=== PATIENT | male | born 1980 | race Caucasian/White ===

== ENCOUNTER 2016-06-10 10:39 | Inpatient (IN) | payer OTHER ==
[2016-06-10 11:40] VITALS: BMI 21.7
--- NOTE | 2016-06-10 14:05 | HP ---
CIWA Score - CIWA Score Nausea/Vomitin-No Nausea/No Vomiting Muscle Tremors: 4-Moderate,w/Arms Extend Anxiety: 4-Mod. Anxious/Guarded Agitation: 4-Moderately Restless Paroxysmal Sweats: 3 Orientation: 0-Oriented Tacttile Disturbances: 0-None Auditory Disturbances: 0-None Visual Disturbances: 0-None Headache: 1-Very Mild CIWA-Ar Total Score: 16 Admission ROS BHS - HPI Chief Complaint: I need to stop drinking. Allergies/Adverse Reactions: Allergies Allergy/AdvReac Type Severity Reaction Status Date / Time No Known Allergies Allergy Verified 06/10/16 13:56 History of Present Illness: Pt is a 36yr old male with a history of alcohol dependence seeking detox for treatment. pt is also HIV since 2016 on tivicay and truvada; pt brought his own medication Exam Limitations: Other (aaox3 irritable but cooperative) - Ebola screening Have you traveled outside of the country in the last 21 days: No Have you had contact with anyone from an Ebola affected area: No Have you been sick,other than usual withdrawal symptoms: No Do you have a fever: No - Review of Systems Constitutional: Diaphoresis, Loss of Appetite, Night Sweats, Changes in sleep, Unintentional Wgt. Loss EENT: reports: Blurred Vision (right eye semi-zuleyka), Tearing, Nose Congestion, Other (5 cerebral anurysum cause right eye blurred vision.) Respiratory: reports: No Symptoms reported Cardiac: reports: Syncope GI: reports: Nausea, Poor Appetite, Poor Fluid Intake : reports: No Symptoms Reported Musculoskeletal: reports: Back Pain Integumentary: reports: Flushing, Sweating Neuro: reports: Headache, Tingling, Tremors Endocrine: reports: Excessive Sweating, Flushing, Intolerance to Cold, Intolerance to Heat Hematology: reports: No Symptoms Reported Psychiatric: reports: Judgement Intact, Mood/Affect Appropiate, Orientated x3, Agitated, Anxious Other Systems: Reviewed and Negative Patient History - Patient Medical History Hx Anemia: No Hx Asthma: No Hx Chronic Obstructive Pulmonary Disease (COPD): No Hx Cancer: No Hx Cardiac Disorders: No Hx Congestive Heart Failure: No Hx Hypertension: No Hx Hypercholesterolemia: Yes Hx Pacemaker: No HX Cerebrovascular Accident: No Hx Seizures: No Hx Dementia: No Hx Diabetes: No Hx Gastrointestinal Disorders: No Hx Liver Disease: No Hx Genitourinary Disorders: No Hx Sexually Transmitted Disorders: No Hx Renal Disease (ESRD): No Hx Thyroid Disease: No Hx Human Immunodeficiency Virus (HIV): Yes (since 2015) Hx Hepatitis C: No Hx Depression: Yes Hx Suicide Attempt: No (denies) Hx Bipolar Disorder: No Hx Schizophrenia: No - Patient Surgical History Past Surgical History: Yes Other Surgical History: V/P shunt 09/2013 d/t brain anurysm - PPD History Previous Implant?: Yes Documented Results: Negative w/o proof PPD to be Administered?: Yes - Reproductive History Patient is a Female of Child Bearing Age (11 -55 yrs old): No - Smoking Cessation Smoking history: Current every day smoker Have you smoked in the past 12 months: Yes Aproximately how many cigarettes per day: 10 Hx Chewing Tobacco Use: No Initiated information on smoking cessation: Yes 'Breaking Loose' booklet given: 06/10/16 - Substance & Tx. History Hx Alcohol Use: Yes Hx Substance Use: Yes Substance Use Type: Alcohol, Cocaine Hx Substance Use Treatment: Yes - Substances Abused Alcohol Route: Oral Frequency: Daily Amount used: 3 6PK BEER Age of first use: 18 Date of Last Use: 06/09/16 Cocaine Route: Smoking Frequency: Daily Amount used: $200 Age of first use: 25 Date of Last Use: 06/09/16 Family Disease History - Family Disease History Family Disease History: Heart Disease: Grandparent, [place]: Grandparent Admission Physical Exam BHS - Vital Signs Vital Signs: Vital Signs - 24 hr 06/10/16 11:33 Temperature 96.7 F L Pulse Rate 90 Respiratory 20 Rate Blood Pressure 138/90 - Physical General Appearance: Yes: Appropriately Dressed, Moderate Distress, Tremorous, Irritable, Sweating, Anxious HEENTM: Yes: Normal Voice, Nasal Congestion, Rhinorrhea, Other (internal shunt to right side of head) Respiratory: Yes: Lungs Clear, Normal Breath Sounds, No Respiratory Distress Neck: Yes: No masses,lesions,Nodules Breast: Yes: Within Normal Limits, No masses Cardiology: Yes: Regular Rhythm, Regular Rate, S1, S2 Abdominal: Yes: Normal Bowel Sounds, Non Tender, Soft Genitourinary: Yes: Within Normal Limits Back: Yes: Normal Inspection Musculoskeletal: Yes: full range of Motion, Other (discomfort to right scapula area) Extremities: Yes: Normal Capillary Refill, Normal Inspection, Non-Tender, Tremors Neurological: Yes: Fully Oriented, Alert, Normal Response Integumentary: Yes: Normal Color, Diaphoresis Lymphatic: Yes: Within Normal Limits - Diagnostic (1) Alcohol dependence with uncomplicated withdrawal Current Visit: Yes Status: Chronic (2) Cocaine dependence Current Visit: Yes Status: Chronic Qualifiers: Substance use status: uncomplicated Qualified Code(s): F14.20 - Cocaine dependence, uncomplicated (3) HIV disease Current Visit: Yes Status: Chronic (4) Hyperlipidemia Current Visit: Yes Status: Chronic Qualifiers: Hyperlipidemia type: unspecified Qualified Code(s): E78.5 - Hyperlipidemia, unspecified Cleared for Admission [facility] - Detox or Rehab [facility] Level of Care: Medically Managed Detox Regimen/Protocol: Librium [facility] Breath Alcohol Content Breath Alcohol Content: 0 Urine Drug Screen - Results Drug Screen Negative: No Urine Drug Screen Results: DOUG-Cocaine
[2016-06-10] MEDS ORDERED: P-EPHED 60MG/TRIPROLIDI 2.5MG TABLET PO PRN (14:15)
[2016-06-10] MEDS ORDERED: IBUPROFEN 400 MG TABLET (FP) PO PRN (14:15)
[2016-06-10] MEDS ORDERED: MAGNESIUM CITRATE 300 ML BOTTLE PO PRN (14:15)
[2016-06-10] MEDS ORDERED: chlordiazePOXIDE HCL 25 MG CAPSULE PO PRN (14:15)
[2016-06-10] MEDS ORDERED: guaiFENesin/D-METHORPHAN HB 10 ML UNIT-DOSE CUPS PO PRN (14:15)
[2016-06-10] MEDS ORDERED: hydrOXYzine PAMOATE 50 MG CAPSULE (FP) PO PRN (14:15)
[2016-06-10] MEDS ORDERED: LOPERAMIDE HCL 2 MG CAPSULE PO PRN (14:15)
[2016-06-10] MEDS ORDERED: diphenhydrAMINE HCL 50 MG CAPSULE PO PRN (14:15)
[2016-06-10] MEDS ORDERED: MENTHOL/PHENOL 1 EACH UD MM PRN (14:15)
[2016-06-10] MEDS ORDERED: MAGNESIUM HYDROX 2400MG/30ML ORAL SUSPENSION 30 ML CUP PO PRN (14:15)
[2016-06-10] MEDS ORDERED: NICOTINE POLACRILEX 4 MG GUM BUC PRN (14:15)
[2016-06-10] MEDS ORDERED: MAG HYDROX/AL HYDROX/SIMETH 30 ML UNIT-DOSE CUP PO PRN (14:15)
[2016-06-10] MEDS ORDERED: ACETAMINOPHEN 325 MG TABLET (FP) PO PRN (14:15)
[2016-06-10] MEDS ORDERED: LIDOCAINE 5% TOPICAL PATCH TP ONE (14:18)
[2016-06-10] MEDS ORDERED: chlordiazePOXIDE HCL 25 MG CAPSULE PO ONE (14:22)
[2016-06-10 16:29] LABS: URINE APPEARANCE CLEAR; URINE BILIRUBIN NEGATIVE (NEGATIVE); URINE COLOR YELLOW; URINE GLUCOSE (UA) NEGATIVE (NEGATIVE); URINE KETONE NEGATIVE (NEGATIVE); URINE LEUK ESTERASE NEGATIVE (NEGATIVE); URINE NITRITE NEGATIVE (NEGATIVE); URINE PROTEIN NEGATIVE (NEGATIVE); URINE UROBILINOGEN NEGATIVE E.U./dl (0.2-1.0)
[2016-06-10 16:38] LABS: URINE BLOOD 1+ (NEGATIVE)
[2016-06-10 16:40] LABS: URINE MUCUS FEW; URINE RBC 1 /hpf (0-3); URINE WBC 1 /hpf (3-5)
[2016-06-10] MEDS: chlordiazePOXIDE HCL 25 MG CAPSULE PO SCH ×2 (17:22→22:35)
--- NOTE | 2016-06-10 19:16 | CONSULT ---
[facility] Psychiatric Consult - Data Date of interview: 06/10/16 Admission source: [facility] Identifying data: First admission to [facility] for this 36 y/o male seeking detox treatment on for alcohol,cocaine and marijuana dependence.Patient is ,a father of one,homeless,unemployed and supported on Public Assistance. Substance Abuse History: - Smoking Cessation. Smoking history: Current every day smoker. Have you smoked in the past 12 months: Yes. Aproximately how many cigarettes per day: 10. Hx Chewing Tobacco Use: No. Initiated information on smoking cessation: Yes. 'Breaking Loose' booklet given: 06/10/16. - Substance & Tx. History. Hx Alcohol Use: Yes. Hx Substance Use: Yes. Substance Use Type : Alcohol, Cocaine. Hx Substance Use Treatment: Yes. - Substances Abused. Alcohol. Route: Oral. Frequency: Daily. Amount used: 3 6PK BEER. Age of first use: 18. Date of Last Use: 06/09/16. Cocaine. Route: Smoking. Frequency: Daily. Amount used: $200. Age of first use: 25. Date of Last Use: 06/09/16. Discussed with the patient.Confirmed this pattern of substance abuse Medical History: Significant for HIV infection [facility] 2016 (on ART drugs), hypercholesterolemia and a history of TOBACCO WEIGHER shunt due to brain aneurysm (2014). Psychiatric History: Patient denies. Physical/Sexual Abuse/Trauma History: Patient denies. Additional Comment: Urine Drug Screen Results: DOUG-Cocaine.Noted. Mental Status Exam - Mental Status Exam Alert and Oriented to: Time, Place, Person Cognitive Function: Good Patient Appearance: Well Groomed Mood: Nervous, Anxious Affect: Mood Congruent Patient Behavior: Fatigued, Appropriate, Cooperative Speech Pattern: Clear Voice Loudness: Normal Thought Process: Goal Oriented Thought Disorder: Not Present Hallucinations: Denies Suicidal Ideation: Denies Homicidal Ideation: Denies Insight/Judgement: Poor Sleep: Poorly, Difficulty falling asleep Appetite: Good Muscle strength/Tone: Normal Gait/Station: Normal Psychiatric Findings - Problem List ([place] 1, 2,3) (1) Alcohol dependence with uncomplicated withdrawal Current Visit: Yes Status: Acute (2) Cocaine dependence Current Visit: Yes Status: Acute Qualifiers: Substance use status: uncomplicated Qualified Code(s): F14.20 - Cocaine dependence, uncomplicated (3) Nicotine dependence Current Visit: Yes Status: Acute (4) HIV disease Current Visit: Yes Status: Chronic (5) Hyperlipidemia Current Visit: Yes Status: Chronic Qualifiers: Hyperlipidemia type: unspecified Qualified Code(s): E78.5 - Hyperlipidemia, unspecified (6) Insomnia Current Visit: Yes Status: Acute - Initial Treatment Plan Initial Treatment Plan: Psychoeducation.Detoxification.Zolpidem 5 mg po hs prn.Patient made aware of the risk for parasomnias.He agrees to take ambien despite risk of parasomnias.Observation.
[2016-06-10] MEDS: THIAMINE HCL 100 MG TABLET (FP) PO SCH (22:35)
[2016-06-10] MEDS: ZOLPIDEM TARTRATE 5 MG TABLET PO PRN (22:35)
[2016-06-11] MEDS: chlordiazePOXIDE HCL 25 MG CAPSULE PO SCH ×4 (05:48→22:16)
[2016-06-11 09:57] LABS: MCH 31.1 pg (25.7-33.7); MCHC 33.7 g/dl (32.0-35.9); MEAN CELL VOLUME 92.5 fl (80-96); MEAN PLT VOLUME 10.3 fl (7.5-11.1); PLATELET COUNT 197 K/MM3 (134-434); RDW 13.3 % (11.9-15.9); WHITE BLOOD COUNT 5.6 K/mm3 (4.0-10.0)
[2016-06-11 10:15] LABS: ALBUMIN 3.4 g/dl (3.4-5.0); ALK PHOS 73 U/L (45-117); ANION GAP 10 (8-16); BILIRUBIN,TOTAL 0.3 mg/dL (0.2-1.0); CALCIUM 8.8 mg/dL (8.5-10.1); CO2 26 mmol/L (21-32); CREATININE 0.9 mg/dL (0.7-1.3); GLUCOSE,RANDOM 126 mg/dL (74-106); SGOT/AST 18 U/L (15-37); SGPT/ALT 21 U/L (12-78); TOT PROT 6.3 g/dl (6.4-8.2)
[2016-06-11] MEDS: PATIENT'S OWN MEDICATION (NON-FORMULARY) (Dolutegravir Sodium 0 MG) PO SCH (10:36)
[2016-06-11] MEDS: PRENATAL VITAMINS W/ FOLIC ACID TABLET (FP) PO SCH (10:38)
[2016-06-11] MEDS: EMTRICITABINE 200MG/TENOFOVIR 300MG PO SCH (10:38)
[2016-06-11] MEDS: LIDOCAINE 5% TOPICAL PATCH TP SCH (10:39)
[2016-06-11] MEDS: NICOTINE 21 MG/24 HOURS TOPICAL PATCH TD SCH (10:39)
--- NOTE | 2016-06-11 12:16 | PN ---
S CIWA - CIWA Score Nausea/Vomitin-No Nausea/No Vomiting Muscle Tremors: 4-Moderate,w/Arms Extend Anxiety: 4-Mod. Anxious/Guarded Agitation: 4-Moderately Restless Paroxysmal Sweats: 1-Minimal Palms Moist Orientation: 0-Oriented Tacttile Disturbances: 3-Moderate Itch/Numb/Burn Auditory Disturbances: 0-None Visual Disturbances: 0-None Headache: 0-None Present CIWA-Ar Total Score: 16 BHS Progress Note (SOAP) Subjective: ANXIETY,SWEATS/CHILLS,FATIGUE. Objective: 06/11/16 12:15 Vital Signs Temperature 96 F L 06/11/16 11:48 Pulse Rate 122 H 06/11/16 11:48 Respiratory Rate 18 06/11/16 11:48 Blood Pressure 154/89 06/11/16 11:48 O2 Sat by Pulse Oximetry (%) Laboratory Tests 06/10/16 06/11/16 06/11/16 15:00 06:00 06:00 WBC 5.6 RBC 4.66 Hgb 14.5 Hct 43.1 MCV 92.5 MCHC 33.7 RDW 13.3 Plt Count 197 MPV 10.3 Sodium 142 Potassium 4.3 Chloride 106 Carbon Dioxide 26 Anion Gap 10 BUN 13 Creatinine 0.9 Creat Clearance w eGFR > 60 Random Glucose 126 H Calcium 8.8 Total Bilirubin 0.3 AST 18 ALT 21 Alkaline Phosphatase 73 Total Protein 6.3 L Albumin 3.4 Urine Color Yellow Urine Appearance Clear Urine pH 5.0 Ur Specific [place] 1.028 Urine Protein Negative Urine Glucose (UA) Negative Urine Ketones Negative Urine Blood 1+ H Urine Nitrite Negative Urine Bilirubin Negative Urine Urobilinogen Negative Ur Leukocyte Esterase Negative Urine RBC 1 Urine WBC 1 Urine Mucus Few Assessment: 06/11/16 12:15 WITHDRAWAL SX Plan: CONTINUE DETOX
[2016-06-11] MEDS: THIAMINE HCL 100 MG TABLET (FP) PO SCH (22:16)
--- NOTE | 2016-06-11 23:36 | EKG ---
Test Reason : Blood Pressure : / mmHG Vent. Rate : 078 BPM Atrial Rate : 078 BPM P-R Int : 110 ms QRS Dur : 106 ms QT Int : 374 ms P-R-T Axes : -19 079 067 degrees QTc Int : 426 ms SINUS RHYTHM WITH SHORT MA OTHERWISE NORMAL ECG NO PREVIOUS ECGS AVAILABLE Confirmed by ALEXEY MAGALLANES, EDGAR ([id number]) on 06/11/2016 11:35:57 PM Referred By: Mohinder Brown Confirmed By:EDGAR BLACKBURN MD
[2016-06-12] MEDS: chlordiazePOXIDE HCL 25 MG CAPSULE PO SCH ×2 (06:09→10:24)
[2016-06-12] MEDS: PATIENT'S OWN MEDICATION (NON-FORMULARY) (Dolutegravir Sodium 0 MG) PO SCH (10:23)
[2016-06-12] MEDS: PRENATAL VITAMINS W/ FOLIC ACID TABLET (FP) PO SCH (10:23)
[2016-06-12] MEDS: EMTRICITABINE 200MG/TENOFOVIR 300MG PO SCH (10:24)
--- NOTE | 2016-06-12 10:24 | PN ---
[facility] CIWA - CIWA Score Nausea/Vomitin-No Nausea/No Vomiting Muscle Tremors: 4-Moderate,w/Arms Extend Anxiety: 4-Mod. Anxious/Guarded Agitation: 4-Moderately Restless Paroxysmal Sweats: 1-Minimal Palms Moist Orientation: 0-Oriented Tacttile Disturbances: 3-Moderate Itch/Numb/Burn Auditory Disturbances: 0-None Visual Disturbances: 0-None Headache: 0-None Present CIWA-Ar Total Score: 16 S Progress Note (SOAP) Subjective: ANXIETY,BACKACHE,FATIGUE,SWEATS/CHILLS. Objective: 06/12/16 10:24 Vital Signs Temperature 96 F L 06/12/16 09:30 Pulse Rate 122 H 06/12/16 09:30 Respiratory Rate 20 06/12/16 09:30 Blood Pressure 137/89 06/12/16 09:30 O2 Sat by Pulse Oximetry (%) Laboratory Last Values WBC 5.6 K/mm3 (4.0-10.0) 06/11/16 06:00 RBC 4.66 M/mm3 (4.00-5.60) 06/11/16 06:00 Hgb 14.5 GM/dL (11.7-16.9) 06/11/16 06:00 Hct 43.1 % (35.4-49) 06/11/16 06:00 MCV 92.5 fl (80-96) 06/11/16 06:00 MCHC 33.7 g/dl (32.0-35.9) 06/11/16 06:00 RDW 13.3 % (11.9-15.9) 06/11/16 06:00 Plt Count 197 K/MM3 (134-434) 06/11/16 06:00 MPV 10.3 fl (7.5-11.1) 06/11/16 06:00 Sodium 142 mmol/L (136-145) 06/11/16 06:00 Potassium 4.3 mmol/L (3.5-5.1) 06/11/16 06:00 Chloride 106 mmol/L (98-107) 06/11/16 06:00 Carbon Dioxide 26 mmol/L (21-32) 06/11/16 06:00 Anion Gap 10 (8-16) 06/11/16 06:00 BUN 13 mg/dL (7-18) 06/11/16 06:00 Creatinine 0.9 mg/dL (0.7-1.3) 06/11/16 06:00 Creat Clearance w eGFR > 60 (>60) 06/11/16 06:00 Random Glucose 126 mg/dL (74-106) H 06/11/16 06:00 Calcium 8.8 mg/dL (8.5-10.1) 06/11/16 06:00 Total Bilirubin 0.3 mg/dL (0.2-1.0) 06/11/16 06:00 AST 18 U/L (15-37) 06/11/16 06:00 ALT 21 U/L (12-78) 06/11/16 06:00 Alkaline Phosphatase 73 U/L (45-117) 06/11/16 06:00 Total Protein 6.3 g/dl (6.4-8.2) L 06/11/16 06:00 Albumin 3.4 g/dl (3.4-5.0) 06/11/16 06:00 Urine Color Yellow 06/10/16 15:00 Urine Appearance Clear 06/10/16 15:00 Urine pH 5.0 (5.0-8.0) 06/10/16 15:00 Ur Specific [place] 1.028 (1.001-1.035) 06/10/16 15:00 Urine Protein Negative (NEGATIVE) 06/10/16 15:00 Urine Glucose (UA) Negative (NEGATIVE) 06/10/16 15:00 Urine Ketones Negative (NEGATIVE) 06/10/16 15:00 Urine Blood 1+ (NEGATIVE) H 06/10/16 15:00 Urine Nitrite Negative (NEGATIVE) 06/10/16 15:00 Urine Bilirubin Negative (NEGATIVE) 06/10/16 15:00 Urine Urobilinogen Negative E.U./dl (0.2-1.0) 06/10/16 15:00 Ur Leukocyte Esterase Negative (NEGATIVE) 06/10/16 15:00 Urine RBC 1 /hpf (0-3) 06/10/16 15:00 Urine WBC 1 /hpf (3-5) 06/10/16 15:00 Urine Mucus Few 06/10/16 15:00 RPR Titer Nonreactive (NONREACTIVE) 06/11/16 06:00 Assessment: 02/01/17 10:24 WITHDRAWAL SX Plan: CONTINUE DETOX
[2016-06-12] MEDS: NICOTINE 21 MG/24 HOURS TOPICAL PATCH TD SCH (10:25)
[2016-06-12] MEDS: LIDOCAINE 5% TOPICAL PATCH TP SCH (10:25)
[2016-06-12] MEDS: chlordiazePOXIDE 5 MG CAPSULE PO SCH ×2 (17:21→22:09)
[2016-06-12] MEDS: THIAMINE HCL 100 MG TABLET (FP) PO SCH (22:09)
[2016-06-13] MEDS: chlordiazePOXIDE 5 MG CAPSULE PO SCH ×2 (06:02→10:15)
[2016-06-13] MEDS: PRENATAL VITAMINS W/ FOLIC ACID TABLET (FP) PO SCH (10:15)
[2016-06-13] MEDS: PATIENT'S OWN MEDICATION (NON-FORMULARY) (Dolutegravir Sodium 0 MG) PO SCH (10:15)
[2016-06-13] MEDS: EMTRICITABINE 200MG/TENOFOVIR 300MG PO SCH (10:15)
--- NOTE | 2016-06-13 10:16 | PN ---
BHS Progress Note (SOAP) Subjective: DECREASED ANXIETY, SWEATS,TREMORS. Objective: 06/13/16 10:16 Vital Signs Temperature 96.2 F L 06/13/16 09:25 Pulse Rate 117 H 06/13/16 09:25 Respiratory Rate 20 06/13/16 09:25 Blood Pressure 126/84 06/13/16 09:25 O2 Sat by Pulse Oximetry (%) Assessment: 06/13/16 10:16 WITHDRAWAL SX Plan: CONTINUE DETOX
[2016-06-13] MEDS: LIDOCAINE 5% TOPICAL PATCH TP SCH (10:17)
[2016-06-13] MEDS: NICOTINE 21 MG/24 HOURS TOPICAL PATCH TD SCH (10:17)
[2016-06-13] MEDS: chlordiazePOXIDE HCL 10 MG CAPSULE PO SCH ×2 (18:00→22:37)
[2016-06-13] MEDS: ZOLPIDEM TARTRATE 5 MG TABLET PO PRN (22:36)
[2016-06-13] MEDS: THIAMINE HCL 100 MG TABLET (FP) PO SCH (22:36)
[2016-06-14] MEDS: chlordiazePOXIDE HCL 10 MG CAPSULE PO SCH (05:35)
[2016-06-14 06:24] VITALS: BP 127/84; PULSE 101; TEMP 97
--- NOTE | 2016-06-14 08:36 | PN ---
BHS Progress Note (SOAP) Subjective: no complaints Objective: 06/14/16 08:35 Laboratory Tests 06/10/16 06/11/16 06/11/16 15:00 06:00 06:00 WBC 5.6 RBC 4.66 Hgb 14.5 Hct 43.1 MCV 92.5 MCHC 33.7 RDW 13.3 Plt Count 197 MPV 10.3 Sodium 142 Potassium 4.3 Chloride 106 Carbon Dioxide 26 Anion Gap 10 BUN 13 Creatinine 0.9 Creat Clearance w eGFR > 60 Random Glucose 126 H Calcium 8.8 Total Bilirubin 0.3 AST 18 ALT 21 Alkaline Phosphatase 73 Total Protein 6.3 L Albumin 3.4 Urine Color Yellow Urine Appearance Clear Urine pH 5.0 Ur Specific [place] 1.028 Urine Protein Negative Urine Glucose (UA) Negative Urine Ketones Negative Urine Blood 1+ H Urine Nitrite Negative Urine Bilirubin Negative Urine Urobilinogen Negative Ur Leukocyte Esterase Negative Urine RBC 1 Urine WBC 1 Urine Mucus Few RPR Titer 06/11/16 06:00 WBC RBC Hgb Hct MCV MCHC RDW Plt Count MPV Sodium Potassium Chloride Carbon Dioxide Anion Gap BUN Creatinine Creat Clearance w eGFR Random Glucose Calcium Total Bilirubin AST ALT Alkaline Phosphatase Total Protein Albumin Urine Color Urine Appearance Urine pH Ur Specific [place] Urine Protein Urine Glucose (UA) Urine Ketones Urine Blood Urine Nitrite Urine Bilirubin Urine Urobilinogen Ur Leukocyte Esterase Urine RBC Urine WBC Urine Mucus RPR Titer Nonreactive 06/14/16 08:35 Vital Signs 06/14/16 06/14/16 03:40 06:23 Temperature 97 F L Pulse Rate 101 H Respiratory 18 18 Rate Blood Pressure 127/84 Assessment: 06/14/16 08:35 compoleted detox, medically stable Plan: d/c today, f/u PCP post discharge for medical care
--- NOTE | 2016-06-14 08:36 | DS ---
[facility] Detox Discharge Summary Admission Date: 06/10/16 Discharge Date: 06/14/16 - Physical Exam Results Vital Signs: Vital Signs Temperature 97 F L 06/14/16 06:23 Pulse Rate 101 H 06/14/16 06:23 Respiratory Rate 18 06/14/16 06:23 Blood Pressure 127/84 06/14/16 06:23 O2 Sat by Pulse Oximetry (%) - Medication Discharge Medications: Ambulatory Orders Dolutegravir Sodium [Tivicay] 50 mg PO DAILY 06/10/16 Emtricitabine/Tenofovir (Tdf) [Truvada 200 mg-300 mg Tablet] 1 each PO DAILY
== END 2016-06-14 08:52 | disposition home or self-care (01) | DRG 774 ==
LOC: YASAS 10:39 → Y3N 14:18
PROVIDERS: ADMIT Internal Medicine; ATTEND Internal Medicine
PROC: HZ2ZZZZ Detoxification Services for Substance Abuse Treatment (ICD-10-PCS; principal; 2016-06-14)
DX: F10.230 Alcohol dependence with withdrawal, uncomplicated (principal); F14.20 Cocaine dependence, uncomplicated; F17.210 Nicotine dependence, cigarettes, uncomplicated; Z21 Asymptomatic human immunodeficiency virus [HIV] infection status; G47.00 Insomnia, unspecified; E78.5 Hyperlipidemia, unspecified
CPT/HCPCS: 36415; 73030-TC-RT; 80053; 81003; 81015; 85027; 86593; 93005; 93010